=== PATIENT | male | born 2005 | race Caucasian/White ===

== ENCOUNTER 2023-04-25 07:16 | Emergency (ER) | payer OTHER, BC ==
[2023-04-25] MEDS ORDERED: Acetaminophen 500 MG Tab PO ONE (07:52)
[2023-04-25] MEDS ORDERED: Ibuprofen 800 MG Tab PO ONE (07:52)
[2023-04-25 08:00] VITALS: BP 149/73; PULSE 110
[2023-04-25 08:32] LABS: BASOPHILS ABSOLUTE AUTO 0.1 x10-3/uL (0.0-0.3); BASOPHILS PERCENT AUTO 0.4 % (0.3-3.8); EOSINOPHILS PERCENT AUTO 0.1 % (0.1-6.8); HEMOGLOBIN 16.8 g/dL (12.9-17.7); LYMPHOCYTES ABSOLUTE AUTO 1.1 x10-3/uL (0.5-4.5); LYMPHOCYTES PERCENT AUTO 8.1 % (15.8-45.3); MEAN CORPUSCULAR HEMOGLOBIN 30.6 pg (27.0-33.3); MEAN CORPUSCULAR HGB CONC 35.1 g/dL (28.7-35.3); MEAN CORPUSCULAR VOLUME 87.3 fL (80.8-98.7); MONOCYTES ABSOLUTE AUTO 1.1 x10-3/uL (0.0-1.2); MONOCYTES PERCENT AUTO 8.1 % (5.5-15.2); NEUTROPHILS ABSOLUTE AUTO 11.7 x10-3/uL (1.7-6.9); NEUTROPHILS PERCENT AUTO 83.3 % (40.3-71.8); PLATELET COUNT,PLT 229 x10(3)uL (117-477); RED CELL DISTRIBUTION WIDTH 12.2 % (12.4-15.0); WHITE BLOOD CELL COUNT,WBC 14.1 x10-3/uL (3.2-10.1)
[2023-04-25 08:39] LABS: BLOOD UREA NITROGEN,BUN 14 mg/dL (7-18); BUN/CREATININE RATIO 12.7 (9-20); CALCIUM 9.4 mg/dL (8.2-10.1); CARBON DIOXIDE,CO2 26 mmol/L (21-32); CHLORIDE,CL 103 mmol/L (100-110); CREATININE 1.1 mg/dL (0.70-1.30); EST CRCL DRUG DOSING (CG) 103.95 mL/min; ESTIMATED GFR 99 mL/min (>60); GLUCOSE RANDOM 102 mg/dL (80-116); POTASSIUM,K 3.7 mmol/L (3.5-5.3); SODIUM,NA 141 mmol/L (135-145)
[2023-04-25 08:45] LABS: A/G RATIO 1.3; ALANINE AMINOTRANSFERASE,ALT 23 U/L (12-36); ALBUMIN 4.5 g/dL (3.2-4.5); ALKALINE PHOSPHATASE 106 IU/L (56-112); ASPARTATE AMNIOTRANSFERASE,AST 23 IU/L (5-25); BILIRUBIN TOTAL 0.4 mg/dL (0.1-1.2)
[2023-04-25 08:48] LABS: AMPHETAMINES SCREEN, URINE NEGATIVE (NEGATIVE); BARBITURATE SCREEN,URINE NEGATIVE (NEGATIVE); BENZODIAZEPINES SCREEN,URINE NEGATIVE (NEGATIVE); METHADONE SCREEN, URINE NEGATIVE (NEGATIVE); METHAMPHETAMINE SCREEN, URINE NEGATIVE (NEGATIVE); OXYCODONE SCREEN,URINE NEGATIVE (NEGATIVE); PROPOXYPHENE SCREEN,URINE NEGATIVE (NEGATIVE); THC SCREEN,URINE NEGATIVE (NEGATIVE)
[2023-04-25 08:49] LABS: BUPRENORPHINE SCREEN,URINE NEGATIVE (NEGATIVE)
[2023-04-25 08:57] LABS: INR 1.05 (1.00-1.24); PROTHROMBIN TIME 10.8 sec (9.0-11.1); PTT,PARTIAL THROMBOPLSTIN TIME 23.6 SECONDS (24.4-33.2)
== END 2023-04-25 08:58 | disposition home or self-care (01) ==
LOC: FB.ED 07:16
DX: S63.502A Unspecified sprain of left wrist, initial encounter (principal); M54.50 Low back pain, unspecified; V86.55XA Driver of 3- or 4- wheeled all-terrain vehicle (ATV) injured in nontraffic accident, initial encounter; Y92.410 Unspecified street and highway as the place of occurrence of the external cause
CPT/HCPCS: 36415; 72100; 73110; 80053; 80307; 85025; 85610; 85730; 99282; 99284; A9270